=== PATIENT | male | born 1950 | race Caucasian/White ===

== ENCOUNTER 2017-01-30 18:38 | Emergency (ER) | payer MEDICARE, OTHER ==
[~2017-01-30] VITALS: Ht 182.9 cm; Wt 93.4 kg
[2017-01-30] MEDS ORDERED: LEXAPRO10 MG PO (18:51)
[2017-01-30] MEDS ORDERED: MULTI VITAMIN1 EACH PO (18:55)
[2017-01-30] MEDS ORDERED: FISH OIL 1,0001 EAC3 PO (18:55)
[2017-01-30] MEDS ORDERED: ASPIR-LOW81 MG PO (18:55)
--- NOTE | 2017-01-30 23:26 | EKG ---
[facility] [address] [place] [address] Signed Normal sinus rhythm Normal ECG No previous ECGs available Confirmed by ONEL ESCOBAR MD ([id number]) on 01/30/2017 11:26:07 PM Electronically Signed By: NOEL ESCOBAR MD 01/30/17 [id number] PATIENT NAME: PRESLEY BANEGAS Electrocardiogram DATE OF : 46 PHYSICIAN: NOEL ESCOBAR MD REPORT #: [id number] REPORT IS CONFIDENTIAL AND NOT TO BE RELEASED WITHOUT AUTHORIZATION
== END 2017-01-30 23:01 | disposition home or self-care (01) ==
LOC: ED 18:38
DX: R42 Dizziness and giddiness (principal); I10 Essential (primary) hypertension; Z85.828 Personal history of other malignant neoplasm of skin; Z86.73 Personal history of transient ischemic attack (TIA), and cerebral infarction without residual deficits; Z87.891 Personal history of nicotine dependence; Z79.82 Long term (current) use of aspirin; Z79.899 Other long term (current) drug therapy; Z98.890 Other specified postprocedural states
CPT/HCPCS: 70450; 80053; 84484; 85025; 93005; 93010; 99284; J7030